=== PATIENT | male | born 1935 | race Caucasian/White ===

== ENCOUNTER 2017-01-07 05:22 | Inpatient (IN) | payer OTHER ==
[2016-12-05 14:46] VITALS: BMI 26.0
--- NOTE | 2016-12-05 15:20 | PAT Medication Instructions ---
Service Date December 05, 2016. Current Home Medication List Glucosamine Sulfate-Methylsulf (Msm/Glucosamine), 1 CAP PO BID Meloxicam (Mobic), 15 MG PO QAM Metformin Hcl (Glucophage *), 1,000 MG PO BID Zinc Sulfate (Zinc Sulfate), 220 MG PO QAM Medication Instructions For Your Scheduled Surgery - Hold the following medications 2 weeks prior to surgery: Zinc Sulfate (Zinc Sulfate), 220 MG PO QAM Glucosamine Sulfate-Methylsulf (Msm/Glucosamine), 1 CAP PO BID - Hold the following medications 7 days prior to surgery per surgeon instructions: Meloxicam (Mobic), 15 MG PO QAM - Hold the following medications 48 hours prior to surgery: Metformin Hcl (Glucophage *), 1,000 MG PO BID - Take the following medications the morning of surgery with a sip of water: Tylenol (if needed) - Take the following medications as scheduled the night before surgery: Tylenol (if needed) If you have any questions please call us at [phone] or [phone] ( [place]) or [phone]
--- NOTE | 2016-12-05 15:51 | DIAGNOSTIC IMAGING REPORT ---
TWO VIEW CHEST CLINICAL HISTORY: Preoperative examination. FINDINGS: PA and lateral chest radiographs are compared to study dated 02/20/2015. The heart is top normal for projection. There is atherosclerotic calcification of the thoracic aorta. Chronic interstitial thickening is similar to previous. There is no airspace consolidation or pleural effusion. There is no pneumothorax. The skeletal structures are osteopenic. Degenerative change is noted in the shoulders and thoracic spine. A left shoulder arthroplasty is partially imaged. IMPRESSION: No active disease in the chest. Electronically signed by: Ye Orourke M.D. 12/05/2016 3:49 PM Dictated Date/Time: 12/05/2016 3:48 PM
[2016-12-05 16:05] LABS: BASO % 0.5 %; BASO ABS # 0.02 K/uL (0-0.2); COMPLETE YES; EOS % 2.4 %; HEMATOCRIT 36.5 % (42-52); IG% 0.3 %; LYMPH % 24.7 %; LYMPH ABS # 0.94 K/uL (1.2-3.4); MEAN CELL VOLUME 88.6 fL (80-100); MEAN CORPUSCULAR HEMOGLOBIN 29.4 pg (25-34); MEAN CORPUSCULAR HGB CONC 33.2 g/dl (32-36); MEAN PLATELET VOLUME 11.4 fL (7.4-10.4); MONO % 9.2 %; NEUT % 62.9 %; PLATELET COUNT 157 K/uL (130-400); RED BLOOD COUNT 4.12 M/uL (4.7-6.1); WHITE BLOOD COUNT 3.81 K/uL (4.8-10.8)
[2016-12-05 16:09] LABS: URINE APPEARANCE CLEAR (CLEAR); URINE BILIRUBIN NEG (NEG); URINE COLOR YELLOW; URINE NITRITE NEG (NEG); URINE SPECIFIC GRAVITY 1.025 (1.000-1.030); UROBILINOGEN NEG (NEG); ZZUR CULT IF INDIC CLEAN CATCH NO
[2016-12-05 16:16] LABS: MANUAL MICROSCOPIC REQUIRED? NO; PARTIAL THROMBOPLASTIN RATIO 1.1; PROTHROMBIN TIME (PATIENT) 10.9 SECONDS (9.0-12.0); REVIEW REQ? NO
[2016-12-05 16:20] LABS: BUN/CREATININE RATIO 23.5 (10-20); CALCIUM 8.8 mg/dl (8.5-10.1); POTASSIUM 4.7 mmol/L (3.5-5.1)
[2016-12-06 05:47] LABS: ESTIMATED AVERAGE GLUCOSE 171 mg/dl; HA1C FLAG Normal (Normal)
--- NOTE | 2017-01-06 19:48 | HISTORY & PHYSICAL EXAMINATION ---
DATE OF ADMISSION: 01/07/2017 CHIEF COMPLAINT: Chronic right knee pain. HISTORY OF PRESENT ILLNESS: This is an 81-year-old male patient of Dr. Vargas'sia complaining of chronic right knee pain, longstanding, now progressively getting worse. The patient has been diagnosed with end-stage osteoarthritis per clinical and radiographic exams. The patient has failed conservative treatment including Celebrex and the use of a wrap. The patient has increased pain with weightbearing activities and his pain does interfere with his activities of daily living. PAST MEDICAL HISTORY: Heart murmur, diabetes mellitus, neck problems, osteoarthritis. SOCIAL HISTORY: Nonsmoker, occasional drinker. PAST SURGICAL HISTORY: Will be provided on admission. FAMILY HISTORY: Noncontributory. REVIEW OF SYSTEMS: The patient complains of chronic right knee pain, otherwise denies any shortness of breath, chest pain, nausea, vomiting or any other joint complaints. MEDICATIONS: Meloxicam 15 mg daily, zinc 15 mg daily, cyclobenzaprine 10 mg t.i.d., metformin 1000 mg b.i.d., and glucosamine chondroitin. ALLERGIES: No known drug allergies. PHYSICAL EXAMINATION: GENERAL: Well-developed, well-nourished 81-year-old male, in no acute distress. He is alert and oriented x3 and pleasant. HEENT: Normocephalic, atraumatic. Extraocular motions are intact. Pupils are equal and reactive to light. HEART: Regular rate and rhythm, no murmurs appreciated. LUNGS: Clear. ABDOMEN: Soft, nontender, bowel sounds are present. EXTREMITIES: Right knee reveals a negative 15-125 degree range of motion. He has a varus deformity with mild swelling. He has medial joint line tenderness. NEUROLOGIC: Neurovascularly, he is intact with 5/5 strength in the right lower extremity. DIAGNOSES: Right knee end-stage osteoarthritis with a history of heart murmur, diabetes mellitus, osteoarthritis, neck problems. PLAN: The patient was advised of his diagnosis. Indications, risks, benefits, and postop course have all been reviewed. The patient wishes to proceed with a right total knee arthroplasty. Necessary consent forms, preoperative testing and clearances will be obtained.
[2017-01-07] VITALS (11 sets, daily range): BP systolic 136–182; BP diastolic 70–86; PULSE 48–58; TEMP 36–36.7; O2SAT 97–100; Ht 170.2 cm; Wt 77.6 kg
[~2017-01-07] VITALS: Ht 170.2 cm; Wt 77.6 kg
[~2017-01-07 05:22] MED LIST: GLC500 PO; GLUCCAP31 PO; MELO15TA4 PO; ZINC1CAP PO
[2017-01-07] MEDS ORDERED: GABAPENTIN 300 MG CAP PO SCH (06:00)
[2017-01-07] MEDS ORDERED: LACTATED RINGER'S 1000ML 1,000 ML IV SCH (06:00)
[2017-01-07] MEDS ORDERED: CEFAZOLIN 1000MG/55 ML D5W 55 ML IV SCH (06:00)
[2017-01-07] MEDS ORDERED: ACETAMINOPHEN 500 MG TAB PO SCH (06:00)
[2017-01-07] MEDS ORDERED: LACTATED RINGER'S 1000ML IV SCH (06:00)
[2017-01-07] MEDS ORDERED: CeleBREX 200 MG CAP PO SCH (06:00)
[2017-01-07] MEDS ORDERED: METOCLOPRAMIDE HCL 10 MG TAB PO SCH (06:00)
[2017-01-07] MEDS ORDERED: FAMOTIDINE 20 MG TAB PO SCH (06:00)
[2017-01-07] MEDS ORDERED: ROPIVACAINE 5MG/ML 30 ML 150 MG, BUPIVACAINE/EPINEPHR 0.5% MPF 30 ML, KETOROLAC TROMETH... INFIL SCH ×6 (06:00)
[2017-01-07] MEDS ORDERED: BUPIVACAINE 0.5 % 5 MG/1 ML PF 10ML VIAL ONE (06:25)
[2017-01-07] MEDS ORDERED: BUPIVACAINE 0.25% 30 ML VIAL ONE (06:26)
[2017-01-07] MEDS ORDERED: PROPOFOL IV EMULSION 10 MG/ML 20 ML VIAL IV ONE (06:30)
[2017-01-07] MEDS ORDERED: FENTANYL CITRATE INJ 50 MCG/1 ML 2 ML VIAL ONE (06:31)
[2017-01-07] MEDS ORDERED: MIDAZOLAM HCL 1 MG/ML 2ML VIAL ONE ×2 (06:31→08:06)
[2017-01-07] MEDS ORDERED: ORTHO JOINT ANESTHETIC ONE (06:53)
[2017-01-07] MEDS ORDERED: POVIDONE-IODINE OP SOLN 30 ML BTL ONE (06:53)
[2017-01-07] MEDS ORDERED: BACITRACIN 50000 UNIT VIAL ONE (06:53)
[2017-01-07] MEDS: TRANEXAMIC ACID INJ 1,000 MG in SODIUM CHLORIDE 0.9% 100ML 100 ML IV SCH ×2 (07:03→11:40)
--- NOTE | 2017-01-07 07:14 | History & Physical Bridge Note ---
H&P Re-Evaluation Bridge Note: I have examined the patient, reviewed the History & Physical and in the interval since the performance of the History & Physical I have noted the following changes of clinical significance: No changes noted
[2017-01-07] MEDS ORDERED: LACTATED RINGER'S 1000ML 1,000 ML IV PRN (08:04)
[2017-01-07] MEDS ORDERED: ONDANSETRON INJ 2 MG/ML 2 ML VIAL IV PRN ×2 (08:15→09:30)
[2017-01-07] MEDS ORDERED: FENTANYL CITRATE INJ 50 MCG/1 ML 2 ML VIAL IV PRN (08:15)
[2017-01-07] MEDS ORDERED: MoRPHine SULFATE 2 MG/ML CARP IV PRN (09:30)
[2017-01-07] MEDS ORDERED: SOD PHOSPHATE/SOD BIPHOSPHATE ENEMA 132 ML BTL PR PRN (09:30)
[2017-01-07] MEDS ORDERED: ZOLPIDEM TARTRATE 5 MG TAB PO PRN (09:30)
[2017-01-07] MEDS ORDERED: TRAMADOL HCL 50 MG TAB PO PRN (09:30)
[2017-01-07] MEDS ORDERED: MAGNESIUM HYDROXIDE SUSP 30 ML UDC PO PRN (09:30)
[2017-01-07] MEDS ORDERED: BISACODYL 10 MG SUPP PR PRN (09:30)
--- NOTE | 2017-01-07 09:33 | [facility] Operative Report ---
Operative Report Operative Date Jan 07, 2017. Pre-Operative Diagnosis Right knee end-stage osteoarthritis Post-Operative Diagnosis same Procedure(s) Performed right total knee replacement Surgeon Dr. Vargas Rivet Passer Surgeon(s) Emil Sewell PA-C Estimated Blood Loss 5 cc Findings grade 4 medial, acl tear loose bodies Specimens A: right knee bone and tissue Drains 2 hemovac Anesthesia spinal regional brandon and orthomix Complication(s) None Disposition Recovery Room / PACU Indications end stage djd oa I attest to the content of the Intraoperative Record and any orders documented therein. Any exceptions are noted below.
--- NOTE | 2017-01-07 09:54 | Anesthesiology Progress Note ---
Anesthesia Post Op Note Date & Time Jan 07, 2017 at 09:53 Vital Signs Pain Intensity: 0 Vital Signs Past 12 Hours Date Time Temp Pulse Resp B/P (MAP) Pulse Ox O2 Delivery O2 Flow Rate FiO2 01/07/17 09:45 49 21 126/72 100 Nasal Cannula 2 01/07/17 09:35 50 16 132/69 100 Nasal Cannula 2 01/07/17 09:27 36.4 52 12 121/63 95 Room Air 01/07/17 05:55 36 56 18 160/75 99 Room Air Notes Mental Status: alert / awake / arousable, participated in evaluation Pt Amnestic to Procedure: Yes Nausea / Vomiting: adequately controlled Pain: adequately controlled Airway Patency, RR, SpO2: stable & adequate BP & HR: stable & adequate Hydration State: stable & adequate Neuraxial Anesthesia: was administered, sensory block is resolving Anesthetic Complications: no major complications apparent Pt doing well.
--- NOTE | 2017-01-07 10:16 | DIAGNOSTIC IMAGING REPORT ---
RIGHT KNEE 2 VIEWS History: Right total knee arthroplasty. Degenerative arthritis. Postop. FINDINGS: The patient is status post a right total knee arthroplasty. The hardware is intact. No fracture or dislocation. Skin mable and surgical drains are in place. IMPRESSION: Right total knee arthroplasty. No evidence for hardware complication. Electronically signed by: Duane Garay M.D. 01/07/2017 10:15 AM Dictated Date/Time: 01/07/2017 10:14 AM
--- NOTE | 2017-01-07 10:21 | OPERATIVE REPORT ---
DATE OF OPERATION: 01/07/2017 INDICATION FOR PROCEDURE: The patient is an 81-year-old male with chronic progressive osteoarthritis of his right knee. He has failed conservative management. He has x-rays demonstrating he has a varus knee, [id number] in the medial compartment. PREOPERATIVE DIAGNOSIS: End-stage osteoarthritis, right knee. POSTOPERATIVE DIAGNOSIS: Same. PROCEDURE: Right total knee arthroplasty. SURGEON: Dr. Vargas. APPLE THINNER: KEO Alejandro. ANESTHESIA: Spinal adductor nerve block and Orthomix. OPERATIVE PROCEDURE: The patient was taken to the operating room after the regional block was placed and a spinal was placed. He was placed supine on the operating room table. Pneumatic tourniquet was placed to his right upper thigh. His right lower extremity was examined under anesthesia. He had about a 10 degree flexion contracture and flexion to about 120 degrees. A thin leg, varus knee. He had a positive Doreen exam, no endpoint. His right lower extremity was then prepped and draped in usual sterile fashion using ChloraPrep. The leg was elevated, exsanguinated with Esmarch bandage. Pneumatic tourniquet was raised to 300 mmHg. Anterior incision was made across the right knee. Skin was incised sharply. Subcutaneous flaps were elevated. He had thick chronic prepatellar bursitis and prepatellar bursal bands, which were all resected. The incision was made through the medial retinaculum and carried up in the mid-third of the quadriceps tendon and carried down to the medial tibial tubercle. Intra-articular findings demonstrated that he had a grade 4 DJD, [id number] medial compartment. He had a chronic ACL tear with a few strands of the tendon still intact with some loose bodies in the intercondylar region. PCL was intact. He had degeneration of the menisci. The [employer] Nephew Journey 2.0, total knee arthroplasty system was used with Vormetricochsner rush healthe MRI templating. The patient was sized for a 6 femur, 6 tibia. The knee was exposed by excising the infrapatellar fat pad, excising the menisci, and cruciate ligaments. All loose bodies were removed. The somewhat thickened synovium was resected. The fat pad over the anterior femur was replaced with the component and area was resected. The femur was exposed. The custom femoral cutting block was pinned in position and the distal femoral cut was made. I was able to extend the knee and collette the patella to do a subperiosteal peel lateral release around the patella. I measured the patellar width and the width was reproduced using a freehand cut technique and a 35 mm patellar component. Drill holes were made and the excess lateral facet of the patella was beveled off to prevent any impingement. The femur was re-exposed. The 6, 5-in-1 cutting block was placed in position. And then the anterior, posterior and chamfer cuts were made. The tibia was then subluxed and the custom tibial cutting block was pinned in position and the proximal tibial cut was made. We used the laminar telecommunications consultant to assess ligamentous balance and ligaments were balanced in extension and flexion. The tibia was re-exposed and the 6 tibial trial was externally rotated in line with the tibial tubercle. The punch for the stem was used. And then the femoral trial was inserted, centered and the notch cutting devices were used and a collet was placed and 12 trial insert gave balanced ligaments through full range of motion and the patella tracked centrally. Trials were removed. The anesthetic cocktail was injected per protocol. The knee was copiously irrigated with pulsatile lavage and antibiotic solution and bacitracin. The final components were cemented with Simplex cement. The final components were 6 Oxinium posterior stabilized Wiseman [employer] Nephew Journey posterior stabilized 2.0 femoral component and the 6 tibial baseplate and then a 12 mm High-Flex posterior stabilized polyethylene insert and the 35 patella. While the cement cured, the knee was soaked with Betadine soak per protocol. The knee was copiously irrigated with antibiotic solution and bacitracin. Two drains were brought out laterally. The quadriceps tendon and medial retinaculum were closed with interrupted [id number] #1 Vicryl sutures. The knee was taken through the full range of motion and repair was secured. Subcutaneous tissues closed with 2-0 Polysorb sutures. Then skin was closed with mable and the Silverlon dressing was applied and the patient tolerated the procedure well with minimal blood loss. KEO Alejandro, was my medical records assistant and he functioned as medical records assistant for the entire procedure. He assisted in the patient's positioning, prepping, draping, soft tissue retraction and instrument management during the knee replacement procedure and he assisted in the subcutaneous and skin closure and will participate in the postoperative care of the patient. I attest to the content of the Intraoperative Record and any orders documented therein. Any exceptions are noted below. MTDD
[2017-01-07] MEDS ORDERED: DEXTROSE 50% 50 ML SYR IV PRN ×2 (11:45→15:15)
[2017-01-07] MEDS ORDERED: GLUCOSE 10 TABS/TUBE PO PRN ×2 (11:45→15:15)
[2017-01-07] MEDS ORDERED: GLUCOSE 40% GEL 15 GM TUBE PO PRN ×2 (11:45→15:15)
[2017-01-07] MEDS ORDERED: GLUCAGON FOR INJ 1 MG VIAL SQ PRN ×2 (11:45→15:15)
[2017-01-07] MEDS: SODIUM CHLORIDE 0.9% 1000ML 1,000 ML IV SCH ×2 (12:10→19:39)
[2017-01-07] MEDS: ACETAMINOPHEN 500 MG TAB PO SCH ×2 (13:06→21:31)
[2017-01-07] MEDS: INSULIN ASPART 100 UNITS/ML 3 ML PEN SC SCH ×3 (13:07→21:37)
[2017-01-07] MEDS ORDERED: PHARMACY GLYCEMIC MGMT CONSULT PRN (15:30)
[2017-01-07] MEDS: CEFAZOLIN IV 1,000 MG in DEXTROSE 5% 50ML 50 ML IV SCH (16:09)
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
[2017-01-07] MEDS: OXYCODONE HCL IR 5 MG TAB (IMMEDIATE RELEASE) PO PRN (19:43)
[2017-01-07] MEDS ORDERED: HydrALAZINE HCL 20 MG/ML VIAL IV. PRN (20:45)
[2017-01-07] MEDS ORDERED: HydrALAZINE HCL 20 MG/ML VIAL ONE (21:27)
[2017-01-07] MEDS: DOCUSATE SODIUM 100 MG CAP PO SCH (21:30)
[2017-01-07] MEDS: ASPIRIN 81 MG ECTAB PO SCH (21:30)
[2017-01-07] MEDS: OXYCODONE HCL 10 MG TABCR (OXYCONTIN) PO SCH (21:31)
[2017-01-07] MEDS: CeleBREX 200 MG CAP PO SCH (21:31)
[2017-01-08] MEDS: CEFAZOLIN IV 1,000 MG in DEXTROSE 5% 50ML 50 ML IV SCH (01:01)
[2017-01-08 03:09] VITALS: BP 106/63; PULSE 60; TEMP 36.7; O2SAT 96
[2017-01-08] MEDS: SODIUM CHLORIDE 0.9% 1000ML 1,000 ML IV SCH (05:32)
[2017-01-08] MEDS: ACETAMINOPHEN 500 MG TAB PO SCH ×3 (05:32→21:13)
[2017-01-08 06:07] LABS: BASO % 0.2 %; BASO ABS # 0.01 K/uL (0-0.2); COMPLETE YES; EOS % 1.3 %; HEMATOCRIT 32.1 % (42-52); IG% 0.2 %; LYMPH % 10.4 %; LYMPH ABS # 0.56 K/uL (1.2-3.4); MEAN CELL VOLUME 87.7 fL (80-100); MEAN CORPUSCULAR HEMOGLOBIN 28.7 pg (25-34); MEAN CORPUSCULAR HGB CONC 32.7 g/dl (32-36); MEAN PLATELET VOLUME 11.2 fL (7.4-10.4); MONO % 9.5 %; NEUT % 78.4 %; PLATELET COUNT 144 K/uL (130-400); RED BLOOD COUNT 3.66 M/uL (4.7-6.1); WHITE BLOOD COUNT 5.36 K/uL (4.8-10.8)
[2017-01-08 06:59] LABS: BUN/CREATININE RATIO 15.1 (10-20); CALCIUM 7.6 mg/dl (8.5-10.1); CREATININE 0.96 mg/dl (0.60-1.40); MAGNESIUM 1.8 mg/dl (1.8-2.4); POTASSIUM 4.3 mmol/L (3.5-5.1)
[2017-01-08 07:01] LABS: ALB/GLOB RATIO 1.1 (0.9-2); PHOSPHORUS 3.2 mg/dl (2.5-4.9)
[2017-01-08 07:35] VITALS: BP 153/79; PULSE 61; TEMP 36.3; O2SAT 95
--- NOTE | 2017-01-08 08:41 | Orthopedic Progress Note ---
Orthopedic Progress Note Date of Service Jan 08, 2017. Subjective Post OP Day: 1 Reports: feeling well, pain controlled w PO medications, Denies: complaints, chest pain, SOB, nausea / vomiting, light headedness, calf pain Objective calves soft nontender, N/V intact, capillary refill less than 2 sec., dressing C /D/I, A&O x3, toes mobile Date Time Temp Pulse Resp B/P (MAP) Pulse Ox O2 Delivery O2 Flow Rate FiO2 01/08/17 07:43 Room Air 01/08/17 03:09 36.7 60 16 106/63 (77) 96 Room Air 01/08/17 01:00 Room Air 01/07/17 23:37 36.7 57 15 136/76 (96) 97 Room Air 01/07/17 22:22 152/77 (102) 01/07/17 20:30 180/86 (117) 01/07/17 19:36 36.5 58 16 182/72 (108) 99 Room Air 01/07/17 15:43 36.3 50 16 152/73 (99) 98 Room Air 01/07/17 15:10 Room Air 01/07/17 13:42 36.3 51 17 161/71 (101) 99 Nasal Cannula 2.0 01/07/17 12:44 54 18 158/70 (99) 100 Nasal Cannula 2.0 01/07/17 11:48 49 16 159/73 (101) 99 Nasal Cannula 2.0 01/07/17 11:15 49 16 151/82 (105) 98 2.0 01/07/17 10:45 36.4 48 16 137/72 (93) 98 Nasal Cannula 2.0 01/07/17 10:45 Nasal Cannula 2.0 01/07/17 10:45 Nasal Cannula 2.0 01/07/17 10:25 36.0 46 20 148/68 98 Nasal Cannula 2 01/07/17 10:15 36.0 47 17 154/81 99 Nasal Cannula 2 01/07/17 10:05 43 13 128/67 100 Nasal Cannula 2 01/07/17 09:55 48 12 136/65 99 Nasal Cannula 2 01/07/17 09:45 49 21 126/72 100 Nasal Cannula 2 01/07/17 09:35 50 16 132/69 100 Nasal Cannula 2 01/07/17 09:27 36.4 52 12 121/63 95 Room Air Laboratory Results 24 Hours: Test 01/08/17 05:35 White Blood Count 5.36 K/uL Red Blood Count 3.66 M/uL Hemoglobin 10.5 g/dL Hematocrit 32.1 % Mean Corpuscular Volume 87.7 fL Mean Corpuscular Hemoglobin 28.7 pg Mean Corpuscular Hemoglobin Concent 32.7 g/dl Platelet Count 144 K/uL Mean Platelet Volume 11.2 fL Neutrophils (%) (Auto) 78.4 % Lymphocytes (%) (Auto) 10.4 % Monocytes (%) (Auto) 9.5 % Eosinophils (%) (Auto) 1.3 % Basophils (%) (Auto) 0.2 % Neutrophils # (Auto) 4.20 K/uL Lymphocytes # (Auto) 0.56 K/uL Monocytes # (Auto) 0.51 K/uL Eosinophils # (Auto) 0.07 K/uL Basophils # (Auto) 0.01 K/uL Assessment & Plan Assessment: POD #1, Right TKA Plan: PT/ OT DVT proph- ASA D/C planning- OPPT As per medicine Inhouse Planning Pain Management: Celebrex, Oxycontin, Morphine, PO Tylenol, Oxy IR DVT Prophylaxis: TEDs, SCDs, ASA Discharge Planning Discharge Planning: home with oppt Pain Management: Oxycontin, PO Tylenol, Oxy IR DVT Prophylaxis: TEDs, ASA Therapy: Physical Therapy, Occupational Therapy
[2017-01-08] MEDS: PANTOprazole SOD 40 MG TAB PO SCH (08:50)
[2017-01-08] MEDS: CeleBREX 200 MG CAP PO SCH ×2 (08:50→21:14)
[2017-01-08] MEDS: DOCUSATE SODIUM 100 MG CAP PO SCH ×2 (08:51→21:14)
[2017-01-08] MEDS: OXYCODONE HCL 10 MG TABCR (OXYCONTIN) PO SCH ×2 (08:51→21:14)
[2017-01-08] MEDS: ASPIRIN 81 MG ECTAB PO SCH ×2 (08:51→21:14)
[2017-01-08] MEDS: ZINC SULFATE 220 MG CAP PO SCH (08:51)
[2017-01-08] MEDS: MULTIVITAMIN TAB PO SCH (08:51)
--- NOTE | 2017-01-08 08:53 | Anesthesiology Progress Note ---
Anesthesia Post Op Note Date & Time Jan 08, 2017 at 08:52 Vital Signs Pain Intensity: 0.0 Vital Signs Past 12 Hours Date Time Temp Pulse Resp B/P (MAP) Pulse Ox O2 Delivery O2 Flow Rate FiO2 01/08/17 07:43 Room Air 01/08/17 03:09 36.7 60 16 106/63 (77) 96 Room Air 01/08/17 01:00 Room Air 01/07/17 23:37 36.7 57 15 136/76 (96) 97 Room Air 01/07/17 22:22 152/77 (102) Notes Mental Status: alert / awake / arousable, participated in evaluation Anesthetic Complications: no major complications apparent
[2017-01-08] MEDS: INSULIN ASPART 100 UNITS/ML 3 ML PEN SC SCH ×4 (09:08→21:18)
[2017-01-08 11:46] VITALS: BP 145/66; PULSE 67; TEMP 36.5; O2SAT 97
--- NOTE | 2017-01-08 12:31 | Hospitalist Progress Note ---
Hospitalist Progress Note Date of Service Jan 08, 2017. (Lea Galicia ., KEO-C) Subjective Pt evaluation today including: conversation w/ patient, physical exam, chart review, lab review, review of inpatient medication list Pain: Managed with PO meds PO Intake: Tolerating PO diet Voiding: no voiding problems Patient reports feeling well. He was able to participate in physical therapy without any problems. His right knee is a bit sore after PT, but denies other complaints. He has been eating and urinating without difficulties. He is passing gas but denies having a bowel movement. The patient denies fevers, chills, sweats, chest pain, palpitations, claudication, cough, wheezing, shortness of breath, nausea, vomiting, abdominal pain, dysuria, hematuria, urinary retention, paralysis, weakness, numbness and tingling. Additional Comments: See HPI for pertinent positives and negatives. All other systems reviewed and negative. (Lea Galicia ., PA-C) Objective Vital Signs Date Time Temp Pulse Resp B/P (MAP) Pulse Ox O2 Delivery O2 Flow Rate FiO2 01/08/17 11:46 36.5 67 17 145/66 (92) 97 Room Air 01/08/17 07:43 Room Air 01/08/17 07:35 36.3 61 17 153/79 (103) 95 Room Air 01/08/17 03:09 36.7 60 16 106/63 (77) 96 Room Air 01/08/17 01:00 Room Air 01/07/17 23:37 36.7 57 15 136/76 (96) 97 Room Air 01/07/17 22:22 152/77 (102) 01/07/17 20:30 180/86 (117) 01/07/17 19:36 36.5 58 16 182/72 (108) 99 Room Air 01/07/17 15:43 36.3 50 16 152/73 (99) 98 Room Air 01/07/17 15:10 Room Air 01/07/17 13:42 36.3 51 17 161/71 (101) 99 Nasal Cannula 2.0 01/07/17 12:44 54 18 158/70 (99) 100 Nasal Cannula 2.0 (Lea Galicia, KEO-C) Physical Exam Notes: General appearance: Well-developed, well-nourished, no apparent distress Head: Normocephalic, atraumatic Eyes: Normal inspection, PERRL, EOMI ENT: Normal ENT inspection, hearing grossly normal, pharynx normal Neck: Supple, no JVD, trachea midline Respiratory/Chest: Lungs clear to auscultation, normal breath sounds, no respiratory distress Cardiovascular: +Systolic murmur. Regular rate & rhythm, no gallop Abdomen/GI: Normal bowel sounds, non-tender, soft Extremities/Musculoskeletal: +RLE wrapped in marvel bandage, drain in place. Normal inspection, no calf tenderness, no pedal edema Neurological/Psych: Alert, normal mood/affect, oriented x 3 Skin: Normal color, warm/dry, no rash (Lea Galicia, ULISES) Laboratory Results Last 24 Hours Test 01/07/17 16:57 01/07/17 20:44 01/08/17 05:35 01/08/17 08:12 Bedside Glucose 139 mg/dl 227 mg/dl 139 mg/dl White Blood Count 5.36 K/uL Red Blood Count 3.66 M/uL Hemoglobin 10.5 g/dL Hematocrit 32.1 % Mean Corpuscular Volume 87.7 fL Mean Corpuscular Hemoglobin 28.7 pg Mean Corpuscular Hemoglobin Concent 32.7 g/dl Platelet Count 144 K/uL Mean Platelet Volume 11.2 fL Neutrophils (%) (Auto) 78.4 % Lymphocytes (%) (Auto) 10.4 % Monocytes (%) (Auto) 9.5 % Eosinophils (%) (Auto) 1.3 % Basophils (%) (Auto) 0.2 % Neutrophils # (Auto) 4.20 K/uL Lymphocytes # (Auto) 0.56 K/uL Monocytes # (Auto) 0.51 K/uL Eosinophils # (Auto) 0.07 K/uL Basophils # (Auto) 0.01 K/uL RDW Standard Deviation 46.3 fL RDW Coefficient of Variation 14.3 % Immature Granulocyte % (Auto) 0.2 % Immature Granulocyte # (Auto) 0.01 K/uL Sodium Level 141 mmol/L Potassium Level 4.3 mmol/L Chloride Level 107 mmol/L Carbon Dioxide Level 29 mmol/L Anion Gap 5.0 mmol/L Blood Urea Nitrogen 14 mg/dl Creatinine 0.96 mg/dl Est Creatinine Clear Calc Drug Dose 55.5 ml/min Estimated GFR () 85.0 Estimated GFR (Non- 73.3 BUN/Creatinine Ratio 15.1 Random Glucose 138 mg/dl Calcium Level 7.6 mg/dl Phosphorus Level 3.2 mg/dl Magnesium Level 1.8 mg/dl Total Bilirubin 0.6 mg/dl Aspartate Amino Transf (AST/SGOT) 10 U/L Alanine Aminotransferase (ALT/SGPT) 21 U/L Alkaline Phosphatase 59 U/L Total Protein 5.8 gm/dl Albumin 3.0 gm/dl Globulin 2.8 gm/dl Albumin/Globulin Ratio 1.1 Test 01/08/17 11:58 Bedside Glucose 199 mg/dl (Lea Galicia ., ULISES) Assessment and Plan 81 y/o male with a history of DM II and OA who presents s/p right TKA with Dr. Vargas on 01/07 for medical management. -Pain management, DVT prophylaxis, and PT/OT as per primary team -POD #1 Diabetes mellitus type 2--HgbA1c 7.6 on 12/05/16 -Hold metformin -Insulin sliding scale -Check BSGs q ac and qhs Code Status -Level I, FULL RESUSCITATION STATUS Thank you for this consultation. We will continue to follow. (Lea Galicia ., ULISES) Reviewed: Pt Seen/Exam by Me (Liz Villatoro MD) History Physician Assistant Chief Nursing Officer Supervision Note: I interviewed and examined the patient. Discussed with KEO Galicia and agree with findings and plan as documented in the note. Any exceptions or clarifications are listed here: Pt doing very well, no complaints. No CP or SOB. VSS, BPs mildly elevated NAD , AAOx3 RRR 1/6 RAHEEM RUSB CTAB no wcr Ext no edema 81 yo male with TKA, DMII, doing very well post-op. -plan for dc to home otmorrow and can go home on all regular meds Documented By: Liz Villatoro (Liz Villatoro MD)
--- NOTE | 2017-01-08 13:59 | Pharmacy Progress Note ---
Glycemic Control Intl Consult Date of Service Jan 08, 2017. Scope Glycemic Pharmacist consulted by Dr Spaulding on 01/07/17 for glycemic control and to write orders per [facility] inpatient glycemic control protocol Objective Weight (Kilograms): 77.60 Accuchecks BSG (last 24hrs): Test 01/07/17 16:57 01/07/17 20:44 01/08/17 05:35 01/08/17 08:12 Bedside Glucose 139 mg/dl (70-99) 227 mg/dl (70-99) 139 mg/dl (70-99) Random Glucose 138 mg/dl (70-99) Test 01/08/17 11:58 Bedside Glucose 199 mg/dl (70-99) Laboratory Data (last 24hrs) Test 01/08/17 05:35 Anion Gap 5.0 mmol/L BUN/Creatinine Ratio 15.1 Blood Urea Nitrogen 14 mg/dl Creatinine 0.96 mg/dl Potassium Level 4.3 mmol/L Sodium Level 141 mmol/L White Blood Count 5.36 K/uL Red Blood Count 3.66 M/uL Hemoglobin 10.5 g/dL Hematocrit 32.1 % Mean Corpuscular Volume 87.7 fL Mean Corpuscular Hemoglobin 28.7 pg Mean Corpuscular Hemoglobin Concent 32.7 g/dl Platelet Count 144 K/uL Mean Platelet Volume 11.2 fL Neutrophils (%) (Auto) 78.4 % Lymphocytes (%) (Auto) 10.4 % Monocytes (%) (Auto) 9.5 % Eosinophils (%) (Auto) 1.3 % Basophils (%) (Auto) 0.2 % Neutrophils # (Auto) 4.20 K/uL Lymphocytes # (Auto) 0.56 K/uL Monocytes # (Auto) 0.51 K/uL Eosinophils # (Auto) 0.07 K/uL Basophils # (Auto) 0.01 K/uL Recent Pertinent Medications Outpatient Anti-diabetic Regimen: * Metformin 1000 mg PO BID * A1c = 7.6 % - 12/05/16 The patient is currently receiving: * Basal insulin: none currently * Correctional Insulin: Novolog Correction per scale ACHS Goal Range: Low 110 mg/dL - High 140 mg/dL Correction Factor: 25 mg/dL/unit * Prandial insulin: Per carb ratio of 1 unit per 10 grams CHO consumed * Oral Agents: on hold Risk Factors for Insulin Resistance: * Recent Surgery - POD #1 R TKA * Diet: T2DM Assessment & Plan ASSESSMENT: * 81 yr old T2DM male s/p R TKA on 01/07 * Pt is maintained on oral antidiabetic agents as an outpatient * Oral agents are not recommended for inpatient use d/t drug interactions, changing PO intake, and difficulty titrating for acute hyper/hypoglycemia. ADA recommends re-initiating outpatient oral agents 1-2 days prior to discharge if/ when appropriate if they were held on admission. * Will hold oral agents for admission and utilize SQ basal bolus insulin regimen which is the recommended regimen for inpatient glycemic control. * Fasting BSG slightly elevated. Patient has had two BSGs > 180 mg/dL - will add one time dose of Lantus with dinner today * BSG higher at mealtimes - tighten CF/CR * Will utilize more stringent goal of 110-140mg/dl based on patient age & comorbidities. Tighter glycemic control is warranted to facilitate wound/ infection healing. PLAN FOR INPATIENT GLYCEMIC CONTROL: * Holding outpatient oral diabetes medications * Basal insulin with LANTUS at dinnertime * 0 units for BSG less than 140 mg/dL * 7 units for BSG 140 - 180 mg/dL (stress of 1) * 13 units for BSG > 180 mg/dL (stress of 2) * Correctional/Prandial Insulin with NOVOLOG per scale ACHS * Goal Range: Low 110 mg/dL - High 140 mg/dL * Tighten Correction Factor to 20 mg/dL/unit * Tighten Nutritional / Prandial insulin per carb ratio to 1 unit per 8 grams CHO consumed LOOKING AHEAD TO DISCHARGE: * Adequate outpatient glycemic control based on patient age - evidenced by A1 c of 7.6% * Recommend continuing outpatient regimen of metformin on discharge. * Please note that the plan above was derived based on current level of insulin resistance and hospital stress. These recommendations are appropriate for inpatient admission only. Plan of care upon discharge will need to be reassessed to avoid potential outpatient hypo/hyperglycemia. Thank you.
[2017-01-08 15:30] VITALS: BP 159/73; PULSE 66; TEMP 36.6; O2SAT 95
[2017-01-08] MEDS: OXYCODONE HCL IR 5 MG TAB (IMMEDIATE RELEASE) PO PRN ×2 (16:46→21:14)
[2017-01-08] MEDS ORDERED: INSULIN GLARGINE SOLOSTAR 100 UNITS/ML 3 ML PEN SC SCH (17:45)
[2017-01-08 23:14] VITALS: BP 144/69; PULSE 70; TEMP 37; O2SAT 94
[2017-01-09] MEDS: ACETAMINOPHEN 500 MG TAB PO SCH (05:52)
[2017-01-09 06:14] LABS: HEMATOCRIT 29.6 % (42-52); MEAN CELL VOLUME 87.8 fL (80-100); MEAN CORPUSCULAR HEMOGLOBIN 28.5 pg (25-34); MEAN CORPUSCULAR HGB CONC 32.4 g/dl (32-36); MEAN PLATELET VOLUME 11.5 fL (7.4-10.4); PLATELET COUNT 148 K/uL (130-400); RED BLOOD COUNT 3.37 M/uL (4.7-6.1); WHITE BLOOD COUNT 4.39 K/uL (4.8-10.8)
[2017-01-09 06:41] LABS: BUN/CREATININE RATIO 14.1 (10-20); CALCIUM 8.1 mg/dl (8.5-10.1); CREATININE 1.1 mg/dl (0.60-1.40); POTASSIUM 3.9 mmol/L (3.5-5.1)
[2017-01-09 07:02] VITALS: BP 148/75; PULSE 65; TEMP 36.5; O2SAT 94
--- NOTE | 2017-01-09 07:40 | Orthopedic Progress Note ---
Orthopedic Progress Note Date of Service Jan 09, 2017. Subjective Post OP Day: 2 Reports: feeling well, pain controlled w PO medications, Denies: complaints, chest pain, SOB, nausea / vomiting, light headedness, calf pain Objective calves soft nontender, N/V intact, capillary refill less than 2 sec., dressing C /D/I, A&O x3, toes mobile Siverlon in tact. Date Time Temp Pulse Resp B/P (MAP) Pulse Ox O2 Delivery O2 Flow Rate FiO2 01/09/17 07:02 36.5 65 16 148/75 (99) 94 Room Air 01/08/17 23:40 Room Air 01/08/17 23:14 37.0 70 16 144/69 (94) 94 Room Air 01/08/17 15:30 36.6 66 18 159/73 (101) 95 Room Air 01/08/17 15:30 Room Air 01/08/17 11:46 36.5 67 17 145/66 (92) 97 Room Air 01/08/17 07:43 Room Air Laboratory Results 24 Hours: Test 01/09/17 05:20 Hematocrit 29.6 % Hemoglobin 9.6 g/dL Assessment & Plan Assessment: POD #2, Right TKA Plan: PT/ OT DVT proph- ASA D/C planning- OPPT today As per medicine Inhouse Planning Pain Management: Celebrex, Oxycontin, Morphine, PO Tylenol, Oxy IR DVT Prophylaxis: TEDs, SCDs, ASA Discharge Planning Discharge Planning: home with oppt Pain Management: Oxycontin, PO Tylenol, Oxy IR DVT Prophylaxis: TEDs, ASA Therapy: Physical Therapy, Occupational Therapy
[2017-01-09] MEDS ORDERED: RXC5 PO (07:43)
[2017-01-09] MEDS ORDERED: CLB200 PO (07:43)
[2017-01-09] MEDS ORDERED: OXYSR10 PO (07:43)
[2017-01-09] MEDS ORDERED: ASPEC81 PO (07:43)
[2017-01-09] MEDS ORDERED: ONDA8TAB6 PO (07:43)
[2017-01-09] MEDS ORDERED: ACET-24 PO (07:43)
--- NOTE | 2017-01-09 07:44 | Discharge Instructions ---
Discharge Instructions Date of Service Jan 09, 2017. Admission Reason for Admission: Right Knee Degenerative Joint Disease Discharge Discharge Diagnosis / Problem: Right TKA Discharge Goals Goal(s): Improve function Activity Recommendations Activity Limitations: as noted below . Instructions / Follow-Up Instructions / Follow-Up ACTIVITY RECOMMENDATIONS: SELF CARE INSTRUCTIONS AFTER TOTAL KNEE REPLACEMENT A. You may need to continue a physical therapy program after discharge from the hospital. There are several options available to you. Your doctor will assist you in selecting the best one for you. 1. An out-patient facility 2 to 3 times a week for therapy or home therapy. 2. Continue working on all exercises taught to you in the hospital. Your goals should be to increase bending of your knee to 90 degrees and beyond and to fully straighten your knee. B. You may progress at your own pace from walking with a walker or crutches to a cane; then to no assistive devices. C. Make walking a part of your daily routine. Be up as much as comfortable with rest periods throughout the day. Rest with leg elevation is very important. Use the ice wrap frequently for the first 3-4 weeks. D. There are no restrictions on activities. You may ride in a car, shop, participate in case packer and sealer and all social activities. E. Wear the long elastic stockings (HEMANTH hose) 20 hours a day for 2 weeks after surgery. They can be removed several times a day for laundering and for a bath. F. You may shower, no tub baths until cleared by your doctor. SPECIAL CARE INSTRUCTIONS: VERY IMPORTANT TO READ AND REVIEW A. There are a few signs you need to watch for after you are home. Call [facility] if you notice any of the followin. Increased severe knee pain. Some pain is expected especially when you exercise. 2. Increased swelling in your leg or knee; pain or swelling of the calf muscle in either lower leg. 3. Any fluid drainage from the incision. 4. Shortness of breath or chest pain. B. Please call [facility] at if you have any concerns or questions about your operation or recovery. The doctor or his nurse will return your call promptly. C. You must take antibiotics before dental work, bladder, bowel or other surgery. Your doctor will provide you with a permanent care to carry describing this precaution. IMPORTANT: * REMEMBER TO TAKE ASPIRIN, 81 MG, TWICE DAILY FOR 4 WEEKS UNLESS OTHERWISE DIRECTED. THIS IS YOUR BLOOD THINNER. * HIGH RISK PATIENTS MAY BE PRESCRIBED A STRONGER BLOOD THINNER. THIS WILL BE PROVIDED AT DISCHARGE. * CALL IF INCREASED PAIN, REDNESS, DRAINAGE OR FEVER GREATER THAT 101. * WEAR HEMANTH HOSE 20 HOURS PER DAY FOR 2 WEEKS. * YOU MAY HAVE A LARGE BAND-AID LIKE DRESSING (SILVERON). THIS WILL REMAIN ON YOUR INCISION FOR 7 DAYS, THEN CAN BE REMOVED. IF INCISION IS LEAKING THROUGH DRESSING, CALL THE OFFICE . FOLLOW UP VISIT: If appointment is not already scheduled: Please call [facility] to make a follow-up appointment for 2 weeks after your surgery at . Current Hospital Diet Patient's current hospital diet: Diabetes Type 2 Diet Discharge Diet Recommended Diet: Diabetes Type 2 Diet Procedures Procedures Performed: Right total knee arthroplasty Pending Studies Studies pending at discharge: no Laboratory Results Hemoglobin A1c Test 12/05/16 15:25 Range/Units Estimated Average Glucose 171 mg/dl Hemoglobin A1c 7.6 H 4.5-5.6 % Medical Emergencies . Who to Call and When: Medical Emergencies: If at any time you feel your situation is an emergency, please call 911 immediately. . Non-Emergent Contact Non-Emergency issues call your: Primary Care Provider . "Provider Documentation" section prepared by Nathanael Sewell. . VTE Core Measure Inpt VTE Proph given/why not?: Other Anticoagulation (asa), T.E.D. Stockings, SCD's [place] Drug Monitoring Program Search Results: patient reviewed within database, no issues identified
[2017-01-09] MEDS: OXYCODONE HCL IR 5 MG TAB (IMMEDIATE RELEASE) PO PRN (07:55)
[2017-01-09] MEDS: ZINC SULFATE 220 MG CAP PO SCH (08:02)
[2017-01-09] MEDS: PANTOprazole SOD 40 MG TAB PO SCH (08:03)
[2017-01-09] MEDS: CeleBREX 200 MG CAP PO SCH (08:03)
[2017-01-09] MEDS: OXYCODONE HCL 10 MG TABCR (OXYCONTIN) PO SCH (08:03)
[2017-01-09] MEDS: ASPIRIN 81 MG ECTAB PO SCH (08:04)
[2017-01-09] MEDS: DOCUSATE SODIUM 100 MG CAP PO SCH (08:04)
[2017-01-09] MEDS: MULTIVITAMIN TAB PO SCH (08:04)
[2017-01-09] MEDS: INSULIN ASPART 100 UNITS/ML 3 ML PEN SC SCH (08:19)
[2017-01-09 09:01] VITALS: BP 148/75; PULSE 65; TEMP 36.5; O2SAT 94
--- NOTE | 2017-01-21 11:58 | Discharge Summary ---
Orthopedic Discharge Summary Admission Date/Reason Jan 07, 2017 at 07:00 Right Knee Degenerative Joint Disease. Discharge Date/Disposition Jan 09, 2017 Home (OPPT) Diagnosis Principal Diagnosis: Right knee OA Procedure(s) Performed Right TKA Consultations Medical Medication Reconciliation Preadmission meds, DVT proph- ASA, pain meds. Admission Physical Exam As per Admitting History & Physical. Hospital Course Patient followed closely with medical, DVT proph- ASA, PT and pain control, uneventful post op course did well and d/c'd home post op day #2. Discharge Instructions Please refer to the electronic Patient Visit Report (Discharge Instructions) for additional information.
== END 2017-01-09 10:35 | disposition home or self-care (01) | DRG 470 ==
LOC: C.ACU 05:22 → C.3E 07:00 → ENRESERV 10:00
PROVIDERS: ADMIT Orthopaedic Surgery Sports Medicine; ATTEND Orthopaedic Surgery Sports Medicine
PROC: 0SRC0J9 Replacement of Right Knee Joint with Synthetic Substitute, Cemented, Open Approach (ICD-10-PCS; principal; 2017-01-07 07:30)
DX: M17.11 Unilateral primary osteoarthritis, right knee (principal); E66.9 Obesity, unspecified; R03.0 Elevated blood-pressure reading, without diagnosis of hypertension; I35.0 Nonrheumatic aortic (valve) stenosis; M21.161 Varus deformity, not elsewhere classified, right knee; M54.2 Cervicalgia; R01.1 Cardiac murmur, unspecified; Z79.1 Long term (current) use of non-steroidal anti-inflammatories (NSAID); Z79.84 Long term (current) use of oral hypoglycemic drugs; Z79.899 Other long term (current) drug therapy; Z87.891 Personal history of nicotine dependence

== ENCOUNTER 2017-11-04 05:18 | Inpatient (IN) | payer OTHER ==
[2017-10-27 13:06] VITALS: BMI 26.0
--- NOTE | 2017-10-27 13:43 | PAT Medication Instructions ---
Service Date Oct 27, 2017. Current Home Medication List Lisinopril (Zestril), 2.5 MG PO BID Meloxicam (Mobic), 15 MG PO QAM Metformin Hcl (Glucophage Ext Rel), 1,000 MG PO BID Methylsulfonylmethane (Msm), 1 CAP PO BID Zinc Sulfate (Zinc Sulfate), 220 MG PO QAM Medication Instructions For Your Scheduled Surgery -Follow your surgeon's instructions for: Meloxicam (Mobic), 15 MG PO QAM - Hold the following medications starting TODAY: Methylsulfonylmethane (Msm), 1 CAP PO BID - Hold the following medications 24 hours prior to surgery: Lisinopril (Zestril), 2.5 MG PO BID --DO NOTE TAKE THE NIGHT BEFORE OR THE MORNING OF SURGERY - Hold the following medications the morning of surgery: Metformin Hcl (Glucophage Ext Rel), 1,000 MG PO BID Zinc Sulfate (Zinc Sulfate), 220 MG PO QAM - Take the following medications as scheduled the night before surgery: Metformin Hcl (Glucophage Ext Rel), 1,000 MG PO BID If you have any questions please call us at [phone] or [phone] or [phone]
[2017-10-27 14:41] LABS: BASO % 0.6 %; BASO ABS # 0.02 K/uL (0-0.2); EOS % 2.8 %; HEMATOCRIT 36.5 % (42-52); HEMOGLOBIN 12.2 g/dL (14.0-18.0); IG# 0.01 K/uL (0.00-0.02); LYMPH % 23.3 %; LYMPH ABS # 0.82 K/uL (1.2-3.4); MEAN CELL VOLUME 87.3 fL (80-100); MEAN CORPUSCULAR HEMOGLOBIN 29.2 pg (25-34); MEAN CORPUSCULAR HGB CONC 33.4 g/dl (32-36); MEAN PLATELET VOLUME 10.9 fL (7.4-10.4); MONO % 11.1 %; MONO ABS # 0.39 K/uL (0.11-0.59); NEUT % 61.9 %; NEUT ABS # 2.18 K/uL (1.4-6.5); PLATELET COUNT 163 K/uL (130-400); RED CELL DISTRIBUTION WIDTH CV 14.6 % (11.5-14.5); RED CELL DISTRIBUTION WIDTH SD 46.4 fL (36.4-46.3); WHITE BLOOD COUNT 3.52 K/uL (4.8-10.8)
[2017-10-27 14:50] LABS: PTT PATIENT 25.9 SECONDS (21.0-31.0)
[2017-10-27 15:55] LABS: ALBUMIN 3.6 gm/dl (3.4-5.0); CREATININE 1.18 mg/dl (0.60-1.40); POTASSIUM 4.2 mmol/L (3.5-5.1)
[2017-10-28 05:52] LABS: HEMOGLOBIN A1C 7.8 % (4.5-5.6)
--- NOTE | 2017-11-03 20:49 | HISTORY & PHYSICAL EXAMINATION ---
DATE OF ADMISSION: 11/03/2017 CHIEF COMPLAINT: Right shoulder pain. HISTORY OF PRESENT ILLNESS: This is an 82-year-old male patient of Dr. Vargas'sia complaining of chronic right shoulder pain and rotator cuff tendinopathy. He has failed conservative treatment and has elected to proceed with a right reversed total shoulder arthroplasty and distal clavicle excision. PAST MEDICAL HISTORY: Heart murmur, hypertension, diabetes mellitus. SOCIAL HISTORY: Lifelong smoker 1 pack per day for 40 years, quit in 1980. Alcohol: Occasional. PAST SURGICAL HISTORY: Will be provided on admission. REVIEW OF SYSTEMS: The patient complains of right shoulder pain and decreased strength, otherwise denies any shortness of breath, chest pain, nausea, vomiting, or any other joint complaints. FAMILY HISTORY: Noncontributory. MEDICATIONS: 1. Meloxicam 50 mg daily. 2. Zinc 50 mg daily. 3. Cyclobenzaprine 10 mg t.i.d. p.r.n. 4. Metformin 1000 mg b.i.d. 5. Glucosamine chondroitin daily. 6. Lisinopril 2.5 mg daily. ALLERGIES: No known drug allergies. PHYSICAL EXAMINATION: GENERAL: Well-developed, well-nourished 82-year-old male, in no acute distress. He is alert and oriented x3 and pleasant. HEENT: Normocephalic, atraumatic. Extraocular motions are intact. Pupils are equal, reactive to light. HEART: Regular rate and rhythm with a 3/6 murmur appreciated. LUNGS: Clear. ABDOMEN: Soft and nontender. Bowel sounds are present. EXTREMITIES: Right shoulder reveals active range of motion of 0-85 degrees, passively to 120. He has crepitation and pain with passive range of motion. He has 3+/5 strength. NEUROLOGIC: Neurovascularly, he is intact in his right upper extremity. 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 PLAN: The patient was advised of his diagnosis. Indications, risks, benefits, postop course have all been reviewed. The patient wished to proceed with a right reversed total shoulder arthroplasty and distal clavicle excision. Necessary consent forms, preoperative testing, and clearances will be obtained.
[2017-11-04] VITALS (8 sets, daily range): BP systolic 114–137; BP diastolic 54–69; PULSE 54–66; TEMP 36.3–37; O2SAT 95–98; Ht 170.2 cm; Wt 77.9 kg
[~2017-11-04] VITALS: Ht 170.2 cm; Wt 77.9 kg
[~2017-11-04 05:18] MED LIST changes: -GLC500 PO; -GLUCCAP31 PO; +LISI-729 PO; -MELO15TA4 PO; +MELO7.5T5 PO; +METF1TAB53 PO; +METH1CAP PO
[2017-11-04] MEDS ORDERED: ACETAMINOPHEN 500 MG TAB PO SCH (06:00)
[2017-11-04] MEDS ORDERED: LACTATED RINGER'S 1000ML 1,000 ML IV SCH (06:00)
[2017-11-04] MEDS ORDERED: GABAPENTIN 300 MG CAP PO SCH (06:00)
[2017-11-04] MEDS ORDERED: CeleBREX 200 MG CAP PO SCH (06:00)
[2017-11-04] MEDS ORDERED: FAMOTIDINE 20 MG TAB PO SCH (06:00)
[2017-11-04] MEDS ORDERED: METOCLOPRAMIDE HCL 10 MG TAB PO SCH (06:00)
[2017-11-04] MEDS ORDERED: CEFAZOLIN 1000MG IV PUSH 7.5 ML IV SCH ×2 (06:00→14:00)
[2017-11-04] MEDS ORDERED: BUPIVACAINE 0.25% 30 ML VIAL ONE (06:35)
[2017-11-04] MEDS ORDERED: EpINEphrine INJ 1MG/ML AMP 1 MG/ML AMP ONE (06:35)
[2017-11-04] MEDS ORDERED: DEXAMETHASONE SOD INJ 4 MG/ML VIAL ONE (06:35)
[2017-11-04] MEDS ORDERED: BACITRACIN 50000 UNIT VIAL ONE (07:00)
[2017-11-04] MEDS ORDERED: EpINEphrine HCL INJ 1 MG/ML 1ML SYRINGE ONE (07:02)
[2017-11-04] MEDS ORDERED: FENTANYL CITRATE INJ 50 MCG/1 ML 2 ML VIAL ONE (07:10)
[2017-11-04] MEDS ORDERED: ONDANSETRON INJ 2 MG/ML 2 ML VIAL ONE (08:04)
[2017-11-04] MEDS ORDERED: PROPOFOL IV EMULSION 10 MG/ML 20 ML VIAL IV ONE (08:04)
[2017-11-04] MEDS ORDERED: EpHEDrine SULFATE 50MG/5ML SYR ONE (08:04)
[2017-11-04] MEDS ORDERED: LIDOCAINE HCL 2% 2 ML VIAL (20MG/ML) ONE (08:04)
[2017-11-04] MEDS ORDERED: ROCURONIUM BROMIDE 10 MG/ML 5 ML VIAL IV ONE ×2 (08:04→10:41)
[2017-11-04] MEDS ORDERED: NEOSTIGMINE METHYLSULFATE 5 MG/5 ML SYR ONE (10:51)
[2017-11-04] MEDS ORDERED: GLYCOPYRROLATE INJ 0.2 MG/ML VIAL ONE (10:51)
--- NOTE | 2017-11-04 11:09 | [facility] Post Operative Brief Note ---
Immediate Operative Summary Operative Date Nov 04, 2017. Pre-Operative Diagnosis Right Shoulder Rotator Cuff Tendinopathy and Acromioclavicular Joint Arthritis Post-Operative Diagnosis Right Shoulder Rotator Cuff Tendinopathy and Acromioclavicular Joint Arthritis Procedure(s) Performed Right Reversed Total Shoulder Arthroplasty, Distal Clavicle Excision Surgeon Dr Vargas Automatic Lathe Operator Surgeon(s) Nathanael Sewell PA-C Estimated Blood Loss 100CC Findings Consistent with Post-Op Diagnosis Specimens A:Right Humeral Head B: CLavicle Drains 2 hemovac Anesthesia Type General Regional Complication(s) none Disposition Disposition: Recovery Room / PACU
[2017-11-04] MEDS ORDERED: NALOXONE HCL 0.4 MG/1 ML VIAL/CARP IV PRN (11:15)
[2017-11-04] MEDS ORDERED: BISACODYL 10 MG SUPP PR PRN (11:15)
[2017-11-04] MEDS ORDERED: MAGNESIUM HYDROXIDE SUSP 30 ML UDC PO PRN (11:15)
[2017-11-04] MEDS ORDERED: METOCLOPRAMIDE HCL INJ 5 MG/ML 2 ML VIAL IV PRN (11:15)
[2017-11-04] MEDS ORDERED: CEFAZOLIN IV 1,000 MG in DEXTROSE 5% 50ML 50 ML IV SCH (11:15)
[2017-11-04] MEDS ORDERED: MoRPHine SULFATE 2 MG/ML CARP IV PRN (11:15)
[2017-11-04] MEDS ORDERED: ZOLPIDEM TARTRATE 5 MG TAB PO PRN (11:15)
[2017-11-04] MEDS ORDERED: SOD PHOSPHATE/SOD BIPHOSPHATE ENEMA 132 ML BTL PR PRN (11:15)
[2017-11-04] MEDS ORDERED: ONDANSETRON INJ 2 MG/ML 2 ML VIAL IV PRN ×2 (11:15→11:45)
[2017-11-04] MEDS ORDERED: KETOROLAC TROMETHAMINE 15 MG/ML VIAL IV. PRN (11:30)
[2017-11-04] MEDS ORDERED: PROMETHAZINE HCL INJ 6.25 MG in SODIUM CHLORIDE 0.9% 50ML 50 ML IV PRN (11:45)
[2017-11-04] MEDS ORDERED: EpHEDrine SULFATE INJ 50 MG/ML AMP IV PRN (11:45)
[2017-11-04] MEDS ORDERED: FENTANYL CITRATE INJ 50 MCG/1 ML 2 ML VIAL IV PRN (11:45)
[2017-11-04] MEDS ORDERED: ATROPINE SULFATE 0.1 MG/ML 5ML SYR IV PRN (11:45)
--- NOTE | 2017-11-04 11:48 | DIAGNOSTIC IMAGING REPORT ---
R SHOULDER MIN 2 VIEWS ROUTINE HISTORY: 82 years-old Male Post shoulder surgery status post right shoulder arthroplasty. Degenerative joint disease. COMPARISON: None available TECHNIQUE: 2 views of the right shoulder FINDINGS: Postoperative changes from recent reverse right shoulder total joint arthroplasty with resection of the distal clavicle. Overlying skin mable are noted in addition to postsurgical soft tissue swelling and deep tissue air with surgical drain in place. Satisfactory alignment without retained foreign body or periprosthetic fracture. IMPRESSION: Postoperative changes of reverse right shoulder total joint arthroplasty with resection of the distal clavicle. No postoperative complication identified. The above report was generated using voice recognition software. It may contain grammatical, syntax or spelling errors. Electronically signed by: Ruy Mcpherson M.D. 11/04/2017 11:47 AM Dictated Date/Time: 11/04/2017 11:45 AM
--- NOTE | 2017-11-04 11:51 | [facility] Operative Report ---
Operative Report Operative Date Nov 04, 2017. Pre-Operative Diagnosis Right Shoulder Rotator Cuff Tendinopathy full-thickness rotator cuff tear, end-stage glenohumeral degenerative arthritis and Acromioclavicular Joint Arthritis and biceps tenosynovitis Post-Operative Diagnosis Same Procedure(s) Performed Right shoulder reversed total shoulder arthroplasty, distal clavicle excision, biceps tenodesis. Surgeon Dr Vargas Name Plate Stamper Surgeon(s) Nathanael Sewell PA-C Estimated Blood Loss 100CC Findings Grade 4 degenerative arthritis glenohumeral joint, delaminated undersurface rotator cuff tear infraspinatus with full-thickness supraspinatus tendon tear, chronic biceps tenosynovitis and hypertrophic acromioclavicular joint osteoarthritis Specimens A:Right Humeral Head B: CLavicle Drains 2 hemovac Anesthesia General and regional Complication(s) None Disposition Recovery Room / PACU Indications 82-year-old male with progressive decreased function of his right shoulder with radiographic [id number] in the glenohumeral joint with some posterior glenoid erosion on axillary view with hypertrophic AC joint subacromial impingement and MRI demonstrating significant rotator cuff tendinopathy with some partial tearing of the infraspinatus with full-thickness small supraspinatus rotator cuff tear with global rotator cuff tendinopathy and biceps tendinopathy biceps tenosynovitis. Description of Procedure The patient was taken to the operating room and anesthetized under regional block and general anesthetic. The patient was positioned on the operating table in a 30 beachchair position with a towel roll under the medial border of the right scapula. The arm was draped free to be able to manipulate the shoulder as needed. The right upper extremity was prepped and draped in usual sterile fashion. Exam demonstrated [id number] crepitation right shoulder with forward elevation to 120 external rotation to 40 abduction to 80. An anterior deltopectoral approach was performed. A longitudinal incision was made in the deltopectoral interval. The skin was incised. Subcutaneous flaps were elevated off the fascia. The cephalic vein was dissected out and retracted lateral with the deltoid. The clavipectoral fascia was divided at the lateral margin of the conjoined tendon and extended up to the CA ligament. The following findings were noted: The subscapularis tendon was intact the supraspinatus tendon had a small full-thickness tear and just generalized significant thinning with the cuff tissue being only a millimeter or 2 thick at the greater tuberosity attachment site. There were greater tuberosity bone spurs at the attachment site. There is subacromial impingement from hypertrophic AC joint arthritis and chronic bursitis. There was chronic tenosynovitis surrounding the biceps tendon and bicipital groove bone spurs that were fairly substantial in size. The upper centimeter of the pectoralis was released for inferior exposure. The biceps tendon was tenodesed to the pectoralis tendon with #2 FiberWire. The proximal biceps was resected. The subscapularis tendon was taken down off the lesser tuberosity using a subperiosteal dissection. A #1 Vicryl traction suture was placed into the free end of the subscapularis tendon and capsule. The subscapular muscle fibers were split longitudinally at the level of the circumflex vessels. The circumflex vessels were identified and tied off with silk ties and divided laterally. A Kitner elevator was used to free up the inferior fibers of the subscapularis off of the capsule. The axillary nerve was identified with a tug test and protected with a blunt Parish retractor between the nerve and the capsule. The capsule was divided with Davis scissors down to the glenoid released off the anterior glenoid and the rotator interval was released to meet the capsular release and a 360 release of the subscapularis was accomplished. The humeral head inferior osteophytes and posterior osteophytes were resected with an Arist chisel and the capsule was released off the neck using both electrocautery and Salgado elevator with the axillary nerve being protected with the blunt Hohmann retractor inferiorly. A Fukuda retractor was placed into the joint retracting the humeral head posterior. Glenoid findings demonstrated the anterior most glenoid had a small rim of articular cartilage adjacent to the labrum and then the remainder of the glenoid was sloped posteriorly with posterior glenoid bone loss. There was inferior glenoid osteophytes. The long head biceps intra-articularly had marked tendinopathy widening and fraying of the tendon attachment site and there was chronic degenerative glenoid labral tearing. The labrum and biceps tendon was resected. An anterior-inferior and posterior inferior capsular release were performed with electrocautery and a Salgado elevator on bone with the nerve protected inferiorly by the retractor. Attention was then taken to the humeral preparation. The cutting guide was placed into the humeral head. Some of the thin supraspinatus tendon tissue was released. It was positioned at 20 of retroversion. Oscillating saw was used to resect the humeral head giving the cut above the level of the posterior rotator cuff insertion site. The humerus was then retracted posterior to the glenoid. The glenoid was sized for a 29 baseplate. The guide for the baseplate was positioned in a 10 inferior tilt and the central drill hole was made. The reamer for the 29 baseplate was used. The central drill was widened for the peg. The General Fusionnier Aequalis CARRILLO- coated 29 mm baseplate was impacted into position. The plate was transfixed with superior and inferior locking screws and anterior and posterior compression screws with stable fixation. The fan reamer was used for the 36 millimeter glenoid sphere. After irrigation the 36 mm offset which was placed inferior glenoid sphere was impacted onto the baseplate and the screw was tightened. Fixation was assessed is stable. Humeral preparation was then performed. A centralizing awl was used followed by broaches up to a size 6. This had the appropriate fit and fill. A +0 reversed tray was then placed. It was rotated into appropriate position. A trial reduction was performed. A 9 trial insert demonstrated good stability and no shuck. The trials were removed. 3 drill holes are made into the harder bone in the bicipital groove area and 3 #5 FiberWire sutures were placed transosseously. Another #5 FiberWire suture was placed through the greater tuberosity at the rotator cuff attachment site passing it through the edge of the torn rotator cuff in figure- of-eight fashion and back to the tuberosity. 2 horizontal mattress sutures were placed repairing the delaminate interspace tendon tissue undersurface to the superior surface of the infraspinatus. The sutures were provisionally placed but left untied until the shoulder was reduced later. The canal was irrigated with antibiotic solution with bacitracin. The final component was assembled. The final component was size 6B longstem ascend flex stem from [email or web address] with a +0 high offset humeral tray and a 36 mm +9 humeral insert. This was then impacted into the humerus with a tight press-fit. It was reduced to the glenoid sphere. Stability was verified. Subscapularis was repaired with the #5 FiberWire sutures using Ross-Evans suture technique. Lateral row soft tissue repair was performed with #2 FiberWire [id number] sutures. The previously placed rotator cuff sutures were then tied repairing the cuff. The pectoralis was repaired with #2 FiberWire [id number] sutures reinforcing the biceps tendon tenodesis. The arm was taken through a range of motion which demonstrated 140 forward elevation 100 abduction external rotation with arm at side to 40 and with arm abducted at 40 to 70 without tension on the repair. The implant was stable through the range of motion tested. The wound was copiously irrigated. 2 Hemovac drains were placed. Attention was then taken to the distal clavicle excision. A transverse incision was made over the AC joint and the subcutaneous tissues were reflected off the fascia. An incision was made across the AC joint and subperiosteal dissection performed to expose 1 cm of distal clavicle which demonstrated a hypertrophic arthritic joint with large spurs. An oscillating saw was used to resect 1 cm distal clavicle. The deltoid trapezius fascia was then repaired after copious irrigation with pulsatile lavage antibiotic solution. Interrupted [id number] #2 FiberWire sutures were used. The subcutaneous tissues were then closed with inverted 2-0 Vicryl and the skin closed with mable and the deltopectoral interval was closed with [id number] #1 Vicryl sutures. The subcutaneous tissues were closed with 2-0 Vicryl sutures. The skin was closed with mable. Sterile dressings were applied and a shoulder immobilizer. Nathanael CROWLEY my physician field assistant assisted in the procedure to the entire procedure including patient positioning arm positioning prepping and draping soft tissue retraction instrument management suture management and performed the subcutaneous and skin closure and will participate in the postoperative care of the patient. I attest to the content of the Intraoperative Record and any orders documented therein. Any exceptions are noted below.
--- NOTE | 2017-11-04 11:54 | Anesthesiology Progress Note ---
Anesthesia Post Op Note Date & Time Nov 04, 2017 at 11:54 Vital Signs Pain Intensity: 0 Vital Signs Past 12 Hours Date Time Temp Pulse Resp B/P (MAP) Pulse Ox O2 Delivery O2 Flow Rate FiO2 11/04/17 11:45 36.9 57 17 143/67 97 Nasal Cannula 2 11/04/17 11:35 57 20 135/61 96 Nasal Cannula 2 11/04/17 11:25 59 22 182/83 97 Oxymask 10 11/04/17 11:15 68 22 146/100 97 Oxymask 10 11/04/17 11:08 36.4 70 18 142/71 100 Oxymask 10 11/04/17 05:44 96 Room Air Notes Mental Status: alert / awake / arousable, participated in evaluation Pt Amnestic to Procedure: Yes Nausea / Vomiting: adequately controlled Pain: adequately controlled Airway Patency, RR, SpO2: stable & adequate BP & HR: stable & adequate Hydration State: stable & adequate Anesthetic Complications: no major complications apparent Block working well in pacu
[2017-11-04] MEDS ORDERED: DEXTROSE 50% 50 ML SYR IV PRN (13:30)
[2017-11-04] MEDS ORDERED: GLUCOSE 40% GEL 15 GM TUBE PO PRN (13:30)
[2017-11-04] MEDS ORDERED: GLUCOSE 10 TABS/TUBE PO PRN (13:30)
[2017-11-04] MEDS ORDERED: GLUCAGON FOR INJ 1 MG VIAL SQ PRN (13:30)
[2017-11-04] MEDS: POTASSIUM CHLORIDE INJ 10 MEQ in SODIUM CHLORIDE 0.9% 1000ML 1,000 ML IV SCH ×2 (13:34→22:33)
[2017-11-04] MEDS: INSULIN ASPART 100 UNITS/ML 3 ML PEN SC SCH ×3 (14:03→21:57)
[2017-11-04] MEDS: ACETAMINOPHEN 500 MG TAB PO SCH ×2 (14:07→21:56)
--- NOTE | 2017-11-04 14:30 | Medical Consult ---
Consultation Date of Consultation: Nov 04, 2017. Attending Physician: Kris Vargas M.D. Reason for Consultation: Post-op evaluation History of Present Illness 82 y/o M Hx HTN, DM II. Pt presented for elective R reverse TSA. He is recovering well post-op. He denies any CP, SOB, N/V or excessive pain at the surgical site. Past Medical/Surgical History 1) HTN 2) DM II 3) DJD Family History FHx: diabetes mellitus FHx: gallbladder disease FHx: heart disease FHx: kidney disease Social History Smoking Status: Former Smoker Marital Status: Housing Status: lives with significant other Occupation Status: unemployed Allergies Coded Allergies: No Known Allergies (Unverified , 10/27/17) Current Inpatient Medications Current Inpatient Medications Medications (Trade) Dose Ordered Sig/Shlomo Route Start Time Stop Time Status Last Admin Dose Admin Cefazolin Sodium 7.5 ml @ 2.5 mls/min PREOP IV 11/04/17 06:00 11/04/17 18:00 11/04/17 07:27 2.5 MLS/MIN Acetaminophen (Tylenol Tab) 1,000 mg PREOP PO 11/04/17 06:00 11/04/17 18:00 11/04/17 06:13 1,000 MG Celecoxib (CeleBREX CAP) 200 mg PREOP PO 11/04/17 06:00 11/04/17 18:00 11/04/17 06:12 200 MG Famotidine (Pepcid Tab) 20 mg PREOP PO 11/04/17 06:00 11/04/17 18:00 11/04/17 06:13 20 MG Gabapentin (Neurontin Cap) 300 mg PREOP PO 11/04/17 06:00 11/04/17 18:00 11/04/17 06:12 300 MG Metoclopramide HCl (Reglan Tab) 10 mg PREOP PO 11/04/17 06:00 11/04/17 18:00 11/04/17 06:12 10 MG Lactated Ringer's 1,000 ml @ 15 mls/hr Q24H IV 11/04/17 06:00 11/04/17 18:00 Lisinopril (Zestril Tab) 2.5 mg BID PO 11/04/17 21:00 12/04/17 20:59 Zinc Sulfate (Zinc Sulfate Cap) 220 mg QAM PO 11/05/17 09:00 12/05/17 08:59 Miscellaneous Information (Order Awaiting Action) 1 ea QS PO 11/04/17 16:00 12/04/17 15:59 Ketorolac Tromethamine (Toradol Inj) 15 mg Q6 PRN IV. 11/04/17 11:30 11/05/17 11:29 Diphenhydramine HCl (Benadryl Cap) 25 mg Q8 PRN PO 11/04/17 11:15 12/04/17 11:14 Zolpidem Tartrate (Ambien Tab) 5 mg HSZ PRN PO 11/04/17 11:15 12/04/17 11:14 Metoclopramide HCl (Reglan Inj) 10 mg Q6H PRN IV 11/04/17 11:15 12/04/17 11:14 Ondansetron HCl (Zofran Inj) 4 mg Q6H PRN IV 11/04/17 11:15 12/04/17 11:14 Pantoprazole Sodium (Protonix Tab) 40 mg QAM PO 11/05/17 09:00 11/09/17 08:59 Potassium Chloride 10 meq/ Sodium Chloride 1,005 ml @ 100 mls/hr Q10H3M IV 11/04/17 11:10 11/05/17 12:00 11/04/17 13:34 100 MLS/HR Oxycodone HCl (Roxicodone Immediate Rel Tab) `1-2 TABS FOR PAIN `1 TAB... Q4H PRN PO 11/04/17 11:15 11/18/17 11:14 Acetaminophen (Tylenol Tab) 1,000 mg Q8 PO 11/04/17 14:00 12/04/17 13:59 11/04/17 14:07 1,000 MG Morphine Sulfate (MoRPHine SULFATE INJ) as needed FOR PAIN, 2-4MG ... Q2H PRN IV 11/04/17 11:15 11/18/17 11:14 Naloxone HCl (Narcan Inj) 0.1 mg Q2M PRN IV 11/04/17 11:15 12/04/17 11:14 Magnesium Hydroxide (Milk Of Magnesia Susp) 30 ml Q6H PRN PO 11/04/17 11:15 12/04/17 11:14 Bisacodyl (Dulcolax Supp) 10 mg DAILY PRN ME 11/04/17 11:15 12/04/17 11:14 Sodium Biphosphate/ Sodium Phosphate (Fleet Enema) 132 ml DAILY PRN ME 11/04/17 11:15 12/04/17 11:14 Docusate Sodium (coLACE CAP) 100 mg BID PO 11/04/17 21:00 12/04/17 20:59 Multivitamins (Multivitamin Tab) 1 tab DAILY PO 11/05/17 09:00 12/05/17 08:59 Insulin Aspart (novoLOG ASPART) SLIDING SCALE G... ACHS SC 11/04/17 16:00 12/04/17 15:59 11/04/17 14:03 6 UNITS Aspirin (Ecotrin Tab) 325 mg QAM PO 11/05/17 09:00 12/05/17 08:59 Fentanyl Citrate (Fentanyl Inj) 50 mcg Q5M PRN IV 11/04/17 11:45 11/04/17 16:45 Ondansetron HCl (Zofran Inj) 4 mg ONE PRN IV 11/04/17 11:45 11/04/17 16:45 Promethazine HCl 6.25 mg/Sodium Chloride 50.25 ml @ 202 mls/hr ONE PRN IV 11/04/17 11:45 11/04/17 16:45 Ephedrine Sulfate (EpHEDrine SULFATE INJ) 5 mg Q5M PRN IV 11/04/17 11:45 11/04/17 16:45 Atropine Sulfate (Atropine Sulfate 0.1mg/ml Inj) 0.5 mg Q1M PRN IV 11/04/17 11:45 11/04/17 16:45 Glucose (Glucose 40% Gel) 15-30 GRAMS 15 GRAMS... UD PRN PO 11/04/17 13:30 12/04/17 13:29 Glucose (Glucose Chew Tab) 4-8 Tablets 4 Tabl... UD PRN PO 11/04/17 13:30 12/04/17 13:29 Dextrose (Dextrose 50% 50ML Syringe) 25-50ML OF 50% DW IV FOR... UD PRN IV 11/04/17 13:30 12/04/17 13:29 Glucagon (Glucagon Inj) 1 mg UD PRN SQ 11/04/17 13:30 12/04/17 13:29 Cefazolin Sodium 1000 mg/Syringe 7.5 ml @ 2.5 mls/min Q8H IV 11/04/17 14:00 11/05/17 13:59 Review of Systems Constitutional: No fever, No chills, No sweats Eyes: No worsening of vision ENT: No hearing loss, No nasal symptoms Respiratory: No cough, No wheezing Cardiovascular: No chest pain, No PND Abdomen: No pain, No vomiting Musculoskeletal: + problem reported (R SHOULDER BANDAGED IN SLING) Genitourinary - Male: No hematuria, No dysuria, No urinary frequency Neurologic: No memory loss, No weakness Psychiatric: No depression symptoms Endocrine: No fatigue Hematologic / Lymphatic: No abnormal bleeding/bruising Integumentary: No rash Allergic / Immunologic: No environmental allergies Physical Exam Date Time Temp Pulse Resp B/P (MAP) Pulse Ox O2 Delivery O2 Flow Rate FiO2 11/04/17 13:25 55 18 114/54 (74) 11/04/17 13:00 36.9 55 16 127/69 (88) 96 Nasal Cannula 2.0 11/04/17 12:25 98 Nasal Cannula 2.0 11/04/17 12:25 37.0 64 16 135/67 (89) 98 Nasal Cannula 2.0 11/04/17 12:25 98 Nasal Cannula 2.0 11/04/17 12:15 61 24 138/69 97 Nasal Cannula 2 11/04/17 12:00 60 18 131/59 96 Nasal Cannula 2 11/04/17 11:45 36.9 57 17 143/67 97 Nasal Cannula 2 11/04/17 11:35 57 20 135/61 96 Nasal Cannula 2 11/04/17 11:25 59 22 182/83 97 Oxymask 10 11/04/17 11:15 68 22 146/100 97 Oxymask 10 11/04/17 11:08 36.4 70 18 142/71 100 Oxymask 10 11/04/17 05:44 96 Room Air General Appearance: WD/WN Head: normocephalic, atraumatic Eyes: normal inspection ENT: normal ENT inspection, pharynx normal Neck: supple, no JVD Respiratory/Chest: chest non-tender, lungs clear, normal breath sounds Cardiovascular: regular rate, rhythm, no edema, no gallop Abdomen/GI: normal bowel sounds, non tender Back: normal inspection, no CVA tenderness Extremities/Musculoskelatal: normal inspection, no calf tenderness, normal capillary refill Neurologic/Psych: staffing operations manager II-XII nml as tested, no motor/sensory deficits, alert, oriented x 3 Skin: normal color Laboratory Results Last 24 Hours Test 11/04/17 05:45 11/04/17 11:19 11/04/17 13:04 Bedside Glucose 160 mg/dl 194 mg/dl 218 mg/dl Assessment & Plan 82 y/o M Hx HTN, DM II. Pt presented for elective R reverse TSA. He is recovering well post-op. He denies any CP, SOB, N/V or excessive pain at the surgical site. 1) Post-op - he is not exhibiting any concerning symptoms, is tolerating PO and ambulating. PT/OT per surgery. We recommend prophylactic anticoagulation if he exceeds a day in the hospital. 2) HTN - should continue Lisinopril after AM labs r/o any SOWMYA a a result of surgery 3) DM II - would normally recommend a sliding scale periop, however, he is eating a full diet so that it is not unreasonable to just resume Metformin. Total time for this consult including review of meds, orthopedic notes, previous labs - exam and discussion with pt - 28 min The medical service will sign off - client relationship manager for any issues which may arise during hospitalization.
[2017-11-04] MEDS: CEFAZOLIN IV 1,000 MG in SYRINGE 0 ML IV SCH ×2 (14:37→22:34)
[2017-11-04] MEDS: DOCUSATE SODIUM 100 MG CAP PO SCH (21:17)
[2017-11-04] MEDS: LISINOPRIL 5 MG TAB PO SCH (21:54)
[2017-11-04] MEDS ORDERED: NURSING VERBAL MED ORDER ONE (22:45)
[2017-11-05] VITALS (8 sets, daily range): BP systolic 141–171; BP diastolic 63–80; PULSE 57–82; TEMP 36.5–37.2; O2SAT 91–97
[2017-11-05] MEDS: ACETAMINOPHEN 500 MG TAB PO SCH ×3 (05:52→20:31)
[2017-11-05] MEDS: CEFAZOLIN IV 1,000 MG in SYRINGE 0 ML IV SCH (07:31)
--- NOTE | 2017-11-05 08:32 | Orthopedic Progress Note ---
Orthopedic Progress Note Date of Service Nov 05, 2017. Subjective Post OP Day: 1 Reports: feeling well, pain controlled w PO medications, Denies: complaints, chest pain, SOB, nausea / vomiting, light headedness, calf pain Objective N/V intact, capillary refill less than 2 sec., dressing C/D/I, A&O x3 Sling in tact, fingers mobile. Date Time Temp Pulse Resp B/P (MAP) Pulse Ox O2 Delivery O2 Flow Rate FiO2 11/05/17 07:11 36.5 57 16 154/74 (100) 97 Room Air 11/05/17 03:15 36.5 60 14 143/67 (92) 94 Room Air 11/05/17 00:00 Room Air 11/04/17 23:04 36.5 54 16 133/69 (90) 95 Room Air 11/04/17 20:34 36.4 58 18 137/66 (89) 96 Room Air 11/04/17 15:45 Room Air 11/04/17 15:28 36.3 61 18 128/68 (88) 96 Nasal Cannula 2.0 11/04/17 14:25 66 16 127/57 (80) 96 11/04/17 13:25 55 18 114/54 (74) 11/04/17 13:00 36.9 55 16 127/69 (88) 96 Nasal Cannula 2.0 11/04/17 12:25 98 Nasal Cannula 2.0 11/04/17 12:25 37.0 64 16 135/67 (89) 98 Nasal Cannula 2.0 11/04/17 12:25 98 Nasal Cannula 2.0 11/04/17 12:15 61 24 138/69 97 Nasal Cannula 2 11/04/17 12:00 60 18 131/59 96 Nasal Cannula 2 11/04/17 11:45 36.9 57 17 143/67 97 Nasal Cannula 2 11/04/17 11:35 57 20 135/61 96 Nasal Cannula 2 11/04/17 11:25 59 22 182/83 97 Oxymask 10 11/04/17 11:15 68 22 146/100 97 Oxymask 10 11/04/17 11:08 36.4 70 18 142/71 100 Oxymask 10 Laboratory Results 24 Hours: Test 11/05/17 04:44 Assessment & Plan Assessment: POD #1, Right reversed TSA, biceps tenodesis Plan: PT/ OT DVT proph- ASA D/C planning- home likely tomorrow As per medicine. Inhouse Planning Pain Management: Toradol, Morphine, PO Tylenol, Oxy IR DVT Prophylaxis: SCDs, ASA Discharge Planning Discharge Planning: home Pain Management: PO Tylenol, Oxy IR DVT Prophylaxis: ASA
[2017-11-05] MEDS: POTASSIUM CHLORIDE INJ 10 MEQ in SODIUM CHLORIDE 0.9% 1000ML 1,000 ML IV SCH (08:40)
[2017-11-05] MEDS: INSULIN ASPART 100 UNITS/ML 3 ML PEN SC SCH ×4 (08:45→20:38)
[2017-11-05] MEDS: LISINOPRIL 5 MG TAB PO SCH ×2 (08:50→20:30)
[2017-11-05] MEDS: DOCUSATE SODIUM 100 MG CAP PO SCH ×2 (08:51→20:30)
[2017-11-05] MEDS: ASPIRIN 325 MG ECTAB PO SCH (08:51)
[2017-11-05] MEDS: MULTIVITAMIN TAB PO SCH (08:51)
[2017-11-05 09:05] LABS: HEMATOCRIT 32.4 % (42-52); HEMOGLOBIN 10.8 g/dL (14.0-18.0); MEAN CELL VOLUME 87.6 fL (80-100); MEAN CORPUSCULAR HEMOGLOBIN 29.2 pg (25-34); MEAN CORPUSCULAR HGB CONC 33.3 g/dl (32-36); PLATELET COUNT 147 K/uL (130-400); RED CELL DISTRIBUTION WIDTH CV 14.1 % (11.5-14.5); RED CELL DISTRIBUTION WIDTH SD 45.1 fL (36.4-46.3); WHITE BLOOD COUNT 6.75 K/uL (4.8-10.8)
[2017-11-05] MEDS: ZINC SULFATE 220 MG CAP PO SCH (09:29)
[2017-11-05] MEDS: PANTOprazole SOD 40 MG TAB PO SCH (09:29)
[2017-11-05 09:41] LABS: CALCIUM 8.1 mg/dl (8.5-10.1); CREATININE 1.06 mg/dl (0.60-1.40); POTASSIUM 3.7 mmol/L (3.5-5.1)
[2017-11-05] MEDS: OXYCODONE HCL IR 5 MG TAB (IMMEDIATE RELEASE) PO PRN ×2 (15:01→20:29)
[2017-11-06] MEDS: ACETAMINOPHEN 500 MG TAB PO SCH (06:11)
[2017-11-06 06:39] VITALS: BP 165/75; PULSE 69; TEMP 36.9; O2SAT 94
--- NOTE | 2017-11-06 07:02 | Orthopedic Progress Note ---
Orthopedic Progress Note Date of Service Nov 06, 2017. Subjective Post OP Day: Reports: feeling well, pain controlled w PO medications, Denies: complaints, chest pain, SOB, nausea / vomiting, light headedness, calf pain Objective N/V intact, capillary refill less than 2 sec., dressing C/D/I, incision C/D/I, A &O x3 sling in tact, fingers mobile Date Time Temp Pulse Resp B/P (MAP) Pulse Ox O2 Delivery O2 Flow Rate FiO2 11/06/17 06:39 36.9 69 14 165/75 (105) 94 Room Air 11/05/17 23:24 37.2 82 14 141/63 (89) 91 Room Air 11/05/17 20:30 Room Air 11/05/17 20:25 76 171/80 (110) 11/05/17 17:27 80 144/69 (94) 11/05/17 15:24 37.1 70 16 163/75 (104) 95 Room Air 11/05/17 11:30 36.5 63 16 157/66 (96) 95 Room Air 11/05/17 07:30 97 Room Air 11/05/17 07:11 36.5 57 16 154/74 (100) 97 Room Air Laboratory Results 24 Hours: Test 11/05/17 08:46 11/06/17 04:44 Hematocrit 32.4 % Hemoglobin 10.8 g/dL Assessment & Plan Assessment: POD #2, Right reversed TSA, biceps tenodesis Plan: PT/ OT DVT proph- ASA D/C planning- home likely today As per medicine. Inhouse Planning Pain Management: Toradol, Morphine, PO Tylenol, Oxy IR DVT Prophylaxis: SCDs, ASA Discharge Planning Discharge Planning: home Pain Management: PO Tylenol, Oxy IR DVT Prophylaxis: ASA
[2017-11-06] MEDS ORDERED: RXC5 PO (07:03)
[2017-11-06] MEDS ORDERED: ACET-24 PO (07:03)
[2017-11-06] MEDS ORDERED: ASPEC325 PO (07:03)
--- NOTE | 2017-11-06 07:05 | Discharge Instructions ---
Discharge Instructions Date of Service Nov 06, 2017. Admission Reason for Admission: Right [place] Degenerative Joint Disease Discharge Discharge Diagnosis / Problem: right reversed tsa, biceps tenodesis Discharge Goals Goal(s): Improve function Activity Recommendations Activity Limitations: as noted below . Instructions / Follow-Up Instructions / Follow-Up ACTIVITY RECOMMENDATIONS: SELF CARE INSTRUCTIONS AFTER TOTAL SHOULDER ARTHROPLASTY REVERSE A. You may do daily exercises as taught in physical therapy while in hospital. No lifting with the operative arm. B. You are to wear your sling/immobilizer at all times EXCEPT when performing your daily exercises and for hygiene purposes. C. You may perform dry, daily dressing changes. Please keep your incision covered. You may shower 48 hours after surgery. Do not apply soap or any ointment/ lotions directly over incision. Do not soak incision in bath tub/swimming pool. D. You may use ice as needed to operative shoulder. SPECIAL CARE INSTRUCTIONS: VERY IMPORTANT TO READ AND REVIEW A. There are a few signs you need to watch for after you are home. Call [facility] at [phone] if you experience any of the followin. Increased severe shoulder pain. Some pain is expected especially when you exercise. 2. Increased swelling in you shoulder or arm; pain or swelling in either upper extremity. 3. Any fluid drainage from the incision. 4. Shortness of breath or chest pain. B. Please call [facility] at [phone] if you have any questions or concerns about your operation or recovery. C. Call your physician if: 1. Temperature is greater than 101 degrees (F). 2. Pain is not relieved by prescribed pain medications. 3. Increase drainage or redness from incision. 4. Unanswered questions or concerns. FOLLOW UP VISIT: Please call [facility] at [phone] to schedule a follow up appointment with Dr. Vargas or his PA in 12-14 days from your surgery date. Current Hospital Diet Patient's current hospital diet: Diabetes Type 2 Diet Discharge Diet Recommended Diet: Diabetes Type 2 Diet Procedures Procedures Performed: Right Reversed Total Shoulder Arthroplasty, Distal Clavicle Excision Pending Studies Studies pending at discharge: no Laboratory Results Hemoglobin A1c Test 10/27/17 13:52 Range/Units Estimated Average Glucose 177 mg/dl Hemoglobin A1c 7.8 H 4.5-5.6 % Medical Emergencies . Who to Call and When: Medical Emergencies: If at any time you feel your situation is an emergency, please call 911 immediately. . Non-Emergent Contact Non-Emergency issues call your: Primary Care Provider . "Provider Documentation" section prepared by Nathanael Sewell. . [place] Drug Monitoring Program Search Results: patient reviewed within database, no issues identified
[2017-11-06 07:30] VITALS: O2SAT 94
[2017-11-06 07:34] LABS: HEMATOCRIT 31.2 % (42-52); HEMOGLOBIN 10.3 g/dL (14.0-18.0); MEAN CELL VOLUME 88.6 fL (80-100); MEAN CORPUSCULAR HEMOGLOBIN 29.3 pg (25-34); MEAN PLATELET VOLUME 11.2 fL (7.4-10.4); PLATELET COUNT 155 K/uL (130-400); RED CELL DISTRIBUTION WIDTH CV 14.4 % (11.5-14.5); RED CELL DISTRIBUTION WIDTH SD 46.5 fL (36.4-46.3); WHITE BLOOD COUNT 6.62 K/uL (4.8-10.8)
[2017-11-06] MEDS: INSULIN ASPART 100 UNITS/ML 3 ML PEN SC SCH (07:49)
[2017-11-06 08:05] LABS: CALCIUM 8.4 mg/dl (8.5-10.1); CREATININE 1.15 mg/dl (0.60-1.40); POTASSIUM 4.2 mmol/L (3.5-5.1)
[2017-11-06 08:23] VITALS: BP 165/75; PULSE 69; TEMP 36.9; O2SAT 94
[2017-11-06] MEDS: ASPIRIN 325 MG ECTAB PO SCH (08:50)
[2017-11-06] MEDS: ZINC SULFATE 220 MG CAP PO SCH (08:51)
[2017-11-06] MEDS: DOCUSATE SODIUM 100 MG CAP PO SCH (08:51)
[2017-11-06] MEDS: LISINOPRIL 5 MG TAB PO SCH (08:51)
[2017-11-06] MEDS: PANTOprazole SOD 40 MG TAB PO SCH (08:51)
[2017-11-06] MEDS: MULTIVITAMIN TAB PO SCH (08:51)
[2017-11-06] MEDS: OXYCODONE HCL IR 5 MG TAB (IMMEDIATE RELEASE) PO PRN (08:56)
== END 2017-11-06 12:03 | disposition home or self-care (01) | DRG 483 ==
LOC: C.ACU 05:18 → C.MSW 06:51 → ENRESERV 11:57
PROVIDERS: ADMIT Orthopaedic Surgery Sports Medicine; ATTEND Orthopaedic Surgery Sports Medicine
PROC: 0LM10ZZ Reattachment of Right Shoulder Tendon, Open Approach (ICD-10-PCS; principal; 2017-11-04 07:30)
PROC: 0PB90ZZ Excision of Right Clavicle, Open Approach (ICD-10-PCS; principal; 2017-11-04 07:30)
PROC: 0RRJ00Z Replacement of Right Shoulder Joint with Reverse Ball and Socket Synthetic Substitute, Open Approach (ICD-10-PCS; principal; 2017-11-04 07:30)
DX: M19.011 Primary osteoarthritis, right shoulder (principal); M67.813 Other specified disorders of tendon, right shoulder; M75.121 Complete rotator cuff tear or rupture of right shoulder, not specified as traumatic; M75.21 Bicipital tendinitis, right shoulder; I10 Essential (primary) hypertension; E11.9 Type 2 diabetes mellitus without complications; Z79.84 Long term (current) use of oral hypoglycemic drugs; Z79.899 Other long term (current) drug therapy; Z87.891 Personal history of nicotine dependence